=== PATIENT | male | born 1980 | race Caucasian/White ===

== ENCOUNTER 2019-12-04 08:56 | Emergency (ER) | payer OTHER, SELFPAY ==
[2019-12-04 09:09] VITALS: BP 142/88; PULSE 71; RESP 18; TEMP 35.7; O2SAT 95; BMI 36.9
[2019-12-04] MEDS: LIDOCAINE 1% (PF) 2 ML (09:28)
--- NOTE | 2019-12-04 09:29 | PC.NURSE ---
at bedside performing suture repair
--- NOTE | 2019-12-04 09:42 | ED.WOUNDLAC ---
HPI - Wound/Laceration General Chief Complaint: Wound/Laceration Stated Complaint: SPLIT LIP OPEN Time Seen by Provider: 12/04/19 09:14 Source: patient Mode of arrival: Family Vehicle Limitations: no limitations History of Present Illness HPI narrative: 39-year-old gentleman with no prior medical history was doing some work this morning and a board fell and hit him on the right side of his lip. There is no loss of consciousness, he does not note any new teeth chips and he did not bite his tongue. He does have a minor laceration to the right side of his lip that does not communicate with the minor laceration on the inside of his lip. Related Data Home Medications Medication Instructions Recorded Confirmed fluoxetine 20 mg PO DAILY 12/04/19 12/04/19 Allergies Allergy/AdvReac Type Severity Reaction Status Date / Time No Known Drug Allergies Allergy Verified 12/04/19 09:12 Review of Systems Review of Systems Narrative: Pertinent positive and negative findings as per HPI Remainder of review of systems is otherwise unremarkable for Constitutional: Fevers, chills, weakness ENT: No sore throat, neck pain, ear pain CV: Chest pain, palpitations, dyspnea on exertion Respiratory: Cough, wheeze, dyspnea Patient History Medical History Healthy adult (Acute) Social History Smoking Status: Former smoker Smoking Status: Former smoker tobacco type: cigarettes alcohol intake frequency: 0-2 drinks per day Substance Use Type: marijuana Exam Narrative Exam Narrative: General: Alert appropriate in no acute distress HEENT: Minor swelling to the lower right lip in the lateral aspect. Has a 1 cm laceration in the lip that does not cross the vermilion border and is not through and through. There is a 1 cm mucosal abrasion on the inner aspect of his lip that does not need any repair. No dental injury. No neck pain no jaw pain and no tenderness along the TMJ joint Respiratory: Able to speak in full sentences, no obvious respiratory distress Skin: No obvious rashes, warm and dry Neurologic: Grossly intact no obvious asymmetries or abnormalities Psych, appropriate insight and affect, cooperative Initial Vital Signs Initial Vital Signs: Vital Signs Temperature 96.3 F L 12/04/19 09:09 Pulse Rate 71 12/04/19 09:09 Respiratory Rate 18 12/04/19 09:09 Blood Pressure 142/88 H 12/04/19 09:09 Pulse Oximetry 95 12/04/19 09:09 Procedures Laceration Repair Right lower lip: Site: lip Size (cm): 1 Description: stellate Depth: simple, single layer Local Anesthetic: lidocaine 1% Amount of anesthesia used (mL): 2 Pre-repair: wound explored and deep structures intact Subcutaneous layer closed with: chromic gut Size: 4-0 Number of sutures: 2 Technique: other (Horizontal mattress) Course Orders Ordered: Discontinued Medications Lidocaine/Sodium Bicarbonate (Buffered Lidocaine 10 Ml Syr) 10 ml INJ NOW ONE Stop: 12/04/19 09:18 Last Admin: 12/04/19 09:28 Dose: Not Given Documented by: CAPRICE Vital Signs Vital signs: Vital Signs - 8 hr 12/04/19 09:09 Temperature 96.3 F L Pulse Rate 71 Respiratory Rate 18 Blood Pressure 142/88 H Pulse Oximetry 95 Discharge Plan Departure Patient Disposition: Home Clinical Impression: Laceration Instructions: DI for Minor Laceration Activity Restrictions/Additional Instructions: Thank you for coming in today I did put in 2 stitches in your lip so that heals more efficiently. You did take the 1st layer of skin off, it is going to get a scab there, but it will heal nicely You do not have need to have the stitches removed. They will dissolve I would suggest using Aquaphor (Vaseline like lotion and lip balm) to keep your lip moist as it heals. Ice will certainly help. Using 400 mg of ibuprofen (2 [id number] pills) and 1 Tylenol every 6 hours can be very helpful in controlling pain. I hope you heal quickly. Prescriptions: No Action fluoxetine 20 mg capsule 20 mg PO DAILY RF: 0
== END 2019-12-04 09:48 | disposition home or self-care (01) ==
PROVIDERS: Emergency Provider Emergency Medicine
DX: S01.511A Laceration without foreign body of lip, initial encounter (principal); W22.8XXA Striking against or struck by other objects, initial encounter
CPT/HCPCS: 12011; 99282; 99283